=== PATIENT | male | born 1960 | race Caucasian/White ===

== ENCOUNTER 2017-08-01 21:29 | Observation (INO) | payer BC ==
[~2017-08-01] VITALS: Ht 177.8 cm; Wt 91.0 kg
[~2017-08-01 21:29] MED LIST: AMBI5TAB; OXYC-360 PO; PHEN12.5 PO; PRED20 PO
[2017-08-01 21:31] VITALS: BP 214/104; PULSE 105; RESP 18; TEMP 98.9; O2SAT 96
[2017-08-01 21:35] VITALS: BP 188/98; PULSE 96; RESP 18; TEMP 98; O2SAT 98
[2017-08-01 21:40] VITALS: BP 212/109
[2017-08-01] MEDS ORDERED: SODIUM CHLORIDE 0.9% FLUSH 10 ML FLUSH IVF PRN (21:45)
[2017-08-01] MEDS ORDERED: ASPIRIN 81 MG CHEW TAB PO ONE (21:45)
[2017-08-01] MEDS ORDERED: LABETALOL HCL 100 MG/20 ML VIAL IV PUSH ONE (21:45)
--- NOTE | 2017-08-01 21:50 | PD ---
HPI Chief Complaint: Chest Pain Time Seen by Provider: 21:38 Travel History International Travel<30 days: No Contact w/Intl Traveler<30days: No Traveled to known affect area: No History of Present Illness HPI This is a 57-year-old male patient of Dr. Moe who presents for evaluation of chest pain. At 8:30 PM this evening the patient was sitting down eating dinner when he developed left upper chest pain which she describes as a pressure. He reports associated paresthesias in the left proximal arm and shoulder. Symptoms lasted for 30 minutes and then resolved. He is currently asymptomatic. He reports that he has been under a lot of stress in regards to work today. He reports that he had a little bit of dyspnea while he was having the chest pain but none currently. He denies any cough, congestion, nausea or vomiting, diaphoresis, fevers or chills, leg swelling, abdominal pain. He has never experienced pain like this before. He reports a past medical history of hypertension which has been controlled with diet. Denies any history of coronary artery disease, hyperlipidemia, diabetes. Denies tobacco use. No other complaints. PFSH Past Medical History Musculoskeletal: Yes (CHRONIC NECK PAIN) Tetanus Vaccination: Unknown Influenza Vaccination: No Past Surgical History Abdominal Surgery: Yes (HERNIA REPAIR) Social History Alcohol Use: Yes (WEEKLY) Tobacco Use: No Substance Use: No Allergies-Medications (Allergen,Severity, Reaction): Coded Allergies: No Known Allergies (Verified , 04/05/11) Reported Meds & Prescriptions Reported Meds & Active Scripts Active Review of Systems Except as stated in HPI: all other systems reviewed are Neg Physical Exam Narrative GENERAL: Well-developed well-nourished male in no acute distress. He is noted to be hypertensive. SKIN: Warm and dry. HEAD: Atraumatic. Normocephalic. EYES: Pupils equal and round. No scleral icterus. No injection or drainage. ENT: No nasal bleeding or discharge. Mucous membranes pink and moist. NECK: Trachea midline. No JVD. CARDIOVASCULAR: Regular rate and rhythm. No murmur appreciated. RESPIRATORY: No accessory muscle use. Clear to auscultation. Breath sounds equal bilaterally. GASTROINTESTINAL: Abdomen soft, non-tender, nondistended. Hepatic and splenic margins not palpable. MUSCULOSKELETAL: No obvious deformities. No clubbing. No cyanosis. No edema. NEUROLOGICAL: Awake and alert. No obvious cranial nerve deficits. Motor grossly within normal limits. Normal speech. PSYCHIATRIC: Appropriate mood and affect; insight and judgment normal. Data Data Last Documented VS Vital Signs Date Time Temp Pulse Resp B/P (MAP) Pulse Ox O2 Delivery O2 Flow Rate FiO2 08/01/17 21:40 212/109 (143) 08/01/17 21:35 98.0 96 18 98 08/01/17 21:31 Room Air Orders Orders Electrocardiogram (08/01/17 21:44) Basic Metabolic Panel (Bmp) (08/01/17 21:44) Ckmb (Isoenzyme) Profile (08/01/17 21:44) Complete Blood Count With Diff (08/01/17:44) Magnesium (Mg) (08/01/17:44) Prothrombin Time / Inr (Pt) (08/01/17:44) Act Partial Throm Time (Ptt) (08/01/17:44) Troponin I (08/01/17 21:44) Chest, Single Ap (08/01/17:44) Ecg Monitoring (08/01/17:44) Bilateral Bp Monitoring (08/01/17 21:44) Iv Access Insert/Monitor (08/01/17 21:44) Oximetry (08/01/17:44) Oxygen Administration (08/01/17:44) Aspirin Chew (Aspirin Chew) (08/01/17 21:45) Sodium Chloride 0.9% Flush (Ns Flush) (08/01/17 21:45) Labetalol Inj (Trandate Inj) (08/01/17 21:45) Potassium Chloride (Kcl) (08/01/17 22:45) CKMB (08/01/17 21:45) CKMB% (08/01/17 21:45) Admit Order (Ed Use Only) (08/01/17 22:43) Activity Bed Rest With Brp (08/01/17 22:44) Vital Signs (Adult) Q4H (08/01/17 22:44) Cardiac Rhythm .As Directed (08/01/17 22:44) Notify Dr: Other .PRN (08/01/17 22:44) Notify Parameters (08/01/17 22:44) Resp Oxygen Nasal Cannula (10/30/17 ) Ckmb (Isoenzyme) Profile (08/02/17 00:45) Ckmb (Isoenzyme) Profile (08/02/17 03:45) Troponin I (08/02/17 00:45) Troponin I (08/02/17 03:45) Electrocardiogram (08/02/17 00:45) Electrocardiogram (08/02/17 03:45) ^ Obtain (08/01/17 22:44) Sodium Chloride 0.9% Flush (Ns Flush) (08/01/17 22:45) Sodium Chloride 0.9% Flush (Ns Flush) (08/02/17 09:00) Labs Laboratory Tests Test 08/01/17 21:45 White Blood Count 6.1 TH/MM3 Red Blood Count 4.61 MIL/MM3 Hemoglobin 14.6 GM/DL Hematocrit 41.2 % Mean Corpuscular Volume 89.5 FL Mean Corpuscular Hemoglobin 31.6 PG Mean Corpuscular Hemoglobin Concent 35.4 % Red Cell Distribution Width 13.3 % Platelet Count 183 TH/MM3 Mean Platelet Volume 7.9 FL Neutrophils (%) (Auto) 70.0 % Lymphocytes (%) (Auto) 19.3 % Monocytes (%) (Auto) 9.0 % Eosinophils (%) (Auto) 1.3 % Basophils (%) (Auto) 0.4 % Neutrophils # (Auto) 4.3 TH/MM3 Lymphocytes # (Auto) 1.2 TH/MM3 Monocytes # (Auto) 0.5 TH/MM3 Eosinophils # (Auto) 0.1 TH/MM3 Basophils # (Auto) 0.0 TH/MM3 CBC Comment DIFF FINAL Differential Comment Prothrombin Time 11.3 SEC Prothromb Time International Ratio 1.0 RATIO Activated Partial Thromboplast Time 25.1 SEC Blood Urea Nitrogen 13 MG/DL Creatinine 1.25 MG/DL Random Glucose 103 MG/DL Calcium Level 9.0 MG/DL Magnesium Level 1.7 MG/DL Sodium Level 140 MEQ/L Potassium Level 3.3 MEQ/L Chloride Level 103 MEQ/L Carbon Dioxide Level 27.6 MEQ/L Anion Gap 9 MEQ/L Estimat Glomerular Filtration Rate 60 ML/MIN Total Creatine Kinase 214 U/L Creatine Kinase MB 4.0 NG/ML Troponin I LESS THAN 0.02 NG/ML MDM Medical Decision Making Medical Screen Exam Complete: Yes Emergency Medical Condition: Yes Medical Record Reviewed: Yes Interpretation(s) EKG sinus rhythm with a rate of 94 Differential Diagnosis Hypertensive urgency, acute coronary syndrome, anxiety, angina, aortic dissection, costochondritis, pneumothorax, pericarditis, myocarditis Narrative Course The patient was placed on ECG monitoring and pulse oximetry. A 12-lead EKG was obtained. Plan is for lab work, chest x-ray. He will be given IV labetalol, oral aspirin. Initial lab work has been reviewed. His potassium is 3.3. His blood pressure improved to 154 systolic after the administration of labetalol. At this point in time, given his risk factors including age and hypertension, plan will be to admit the patient to the chest pain center for serial cardiac enzymes and rule out purposes. He is agreeable. Procedures EKG Prior to Arrival: Yes Diagnosis Primary Impression: Chest pain Qualified Codes: R07.9 - Chest pain, unspecified Additional Impression: Hypertension Qualified Codes: I10 - Essential (primary) hypertension Admitting Information Admitting Physician Requests: Observation Giovanny Bustillo Aug 01, 2017 21:50
--- NOTE | 2017-08-01 21:57 | RADRPT ---
EXAM DATE/TIME: 08/01/2017 21:46 [facility] COMPARISON: No previous studies available for comparison. INDICATIONS : Chest pain. MEDICAL HISTORY : None. SURGICAL HISTORY : None. ENCOUNTER: Initial ACUITY: 1 day PAIN SCORE: 4/10 LOCATION: Bilateral chest FINDINGS: A single view of the chest demonstrates the lungs to be symmetrically aerated without evidence of mas s, infiltrate or effusion. The cardiomediastinal contours are unremarkable. Osseous structures are intact. CONCLUSION: No acute disease. Juan F Fuentes MD on August 01, 2017 at 21:55 Board Certified Radiologist. This report was verified electronically.
[2017-08-01 22:00] VITALS: BP 148/73; PULSE 87; RESP 16; O2SAT 96
[2017-08-01 22:11] LABS: AUTOMATED NEUTROPHIL # 4.3 TH/MM3 (1.8-7.7); BASOPHIL % 0.4 % (0.0-2.0); EOSINOPHIL # 0.1 TH/MM3 (0-0.4); EOSINOPHIL % 1.3 % (0.0-4.0); HEMATOCRIT 41.2 % (39.0-51.0); HEMOGLOBIN 14.6 GM/DL (13.0-17.0); LYMPH % 19.3 % (9.0-44.0); LYMPHOCYTE # 1.2 TH/MM3 (1.0-4.8); MEAN CELL VOLUME 89.5 FL (80.0-100.0); MEAN CORPUSCULAR HEMOGLOBIN 31.6 PG (27.0-34.0); MEAN CORPUSCULAR HGB CONC 35.4 % (32.0-36.0); MEAN PLATELET VOLUME 7.9 FL (7.0-11.0); MONOCYTE # 0.5 TH/MM3 (0-0.9); PLATELET COUNT 183 TH/MM3 (150-450); RED BLOOD COUNT 4.61 MIL/MM3 (4.50-5.90); RED CELL DISTRIBUTION WIDTH 13.3 % (11.6-17.2); WHITE BLOOD COUNT 6.1 TH/MM3 (4.0-11.0)
[2017-08-01 22:28] LABS: PROTHROMBIN TIME - PATIENT 11.3 SEC (9.8-11.6)
[2017-08-01 22:29] LABS: BICARBONATE 27.6 MEQ/L (21.0-32.0); BLOOD UREA NITROGEN 13 MG/DL (7-18); CHLORIDE 103 MEQ/L (98-107); CREATININE 1.25 MG/DL (0.60-1.30); GLOMERULAR FILTRATION RATE 60 ML/MIN (>89); GLUCOSE,RANDOM 103 MG/DL (74-106); MAGNESIUM 1.7 MG/DL (1.5-2.5); SODIUM (NA) 140 MEQ/L (136-145)
[2017-08-01 22:30] VITALS: BP 152/79; PULSE 83; RESP 16; O2SAT 97
[2017-08-01 22:32] LABS: TROPONIN I LESS THAN 0.02 NG/ML (0.02-0.05)
[2017-08-01] MEDS ORDERED: POTASSIUM CHLORIDE 20 MEQ CONTROLLED RELEASE TAB PO ONE (22:45)
[2017-08-01] MEDS ORDERED: SODIUM CHLORIDE 0.9% FLUSH 10 ML FLUSH IV FLUSH PRN (22:45)
[2017-08-01] MEDS ORDERED: BUPR150CR PO (23:11)
[2017-08-01] MEDS ORDERED: LORA1CHW PO (23:11)
[2017-08-01] MEDS ORDERED: ZANT150T2 PO (23:11)
[2017-08-01] MEDS ORDERED: PRIL2.5P PO (23:11)
[2017-08-01] MEDS ORDERED: PHEN1LIQ33 PO ×2 (23:11)
[2017-08-02 00:57] VITALS: BP 170/79; PULSE 87; RESP 18; TEMP 98.7; O2SAT 97
[2017-08-02 01:50] LABS: TROPONIN I LESS THAN 0.02 NG/ML (0.02-0.05)
[2017-08-02 04:04] VITALS: PULSE 80
[2017-08-02 04:19] VITALS: BP 172/84; PULSE 77; RESP 18; TEMP 98.7; O2SAT 98
[2017-08-02 04:55] LABS: TROPONIN I LESS THAN 0.02 NG/ML (0.02-0.05)
[2017-08-02 08:01] VITALS: BP 156/88; PULSE 69; RESP 22; TEMP 98; O2SAT 96
[2017-08-02] MEDS ORDERED: SODIUM CHLORIDE 0.9% FLUSH 10 ML FLUSH IV FLUSH SCH ×2 (09:00→21:00)
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
[2017-08-02] MEDS ORDERED: ONDANSETRON HCL 4 MG/2 ML VIAL IV PUSH PRN (09:15)
[2017-08-02] MEDS ORDERED: NITROGLYCERIN 0.4 MG SL 25 TABS/BTL SL PRN (09:15)
[2017-08-02] MEDS ORDERED: SODIUM CHLORIDE 0.9% FLUSH 10 ML FLUSH IV FLUSH PRN (09:15)
[2017-08-02] MEDS ORDERED: ACETAMINOPHEN 500 MG CPLT PO PRN (09:15)
[2017-08-02] MEDS ORDERED: FAMOTIDINE 20 MG TAB PO SCH (11:00)
[2017-08-02 12:47] VITALS: BP 170/89; PULSE 75; RESP 24; TEMP 98.2; O2SAT 97
--- NOTE | 2017-08-02 13:11 | RADRPT ---
EXAM DATE/TIME: 08/02/2017 10:33 [facility] COMPARISON: No previous studies available for comparison. INDICATIONS : Left upper chest pain. Angina DOSE: 25.9 mCi Tc99m Myoview at stress 8.7 mCi Tc99m Myoview at rest REST HEART RATE: 94 BPM TARGET HEART RATE: 139 BPM MAX HEART RATE: 143 BPM REST BLOOD PRESSURE: 148/92 mmHg MAX BLOOD PRESSURE: 166/88 mmHg EJECTION FRACTION: 59% MEDICAL HISTORY : Hypertension. SURGICAL HISTORY : Hernia repair. ENCOUNTER: Initial ACUITY: 1 day PAIN SCALE: 5/10 LOCATION: Left upper chest TECHNIQUE: The patient underwent upright treadmill exercise in the chest pain center. Continuous ECG tracing wa s monitored during stress. Gated SPECT imaging was performed after stress, and conventional SPECT im aging was performed at rest. The examination was performed on a SPECT/CT scanner, both attenuation-c orrected and non-corrected datasets were reviewed. FINDINGS: DISTRIBUTION: The maximum perfused segment at stress is in the septal wall. PERFUSION STUDY: The pattern of perfusion at stress is within normal limits with regional variations in perfusion with in 30%. Mild decreased activity along the inferior wall correlates with diaphragmatic attenuation. No evidence of redistribution. The summed stress score is one. GATED STUDY: There is intact wall motion and thickening without hypokinetic or dyskinetic segments. CONCLUSION: 1. No evidence of stress-induced ischemia. 2. Intact wall motion with 59% ejection fraction. RISK CATEGORY: Low (<1% Annual Mortality Rate) Guillermo Bean MD on August 02, 2017 at 13:08 Board Certified Radiologist. This report was verified electronically.
--- NOTE | 2017-08-02 13:44 | HHI.DCPOC ---
Discharge Care Plan Diagnosis: (1) Atypical chest pain (2) Situational stress (3) Hypertension Goals to Promote Your Health * To prevent worsening of your condition and complications * To maintain your health at the optimal level Directions to Meet Your Goals Take your medications as prescribed Follow your dietary instruction Follow activity as directed Keep your appointments as scheduled Take your immunizations and boosters as scheduled If your symptoms worsen call your PCP, if no PCP go to Urgent Care Center or Emergency Room Smoking is Dangerous to Your Health. Avoid second hand smoke Call the 24-hour hour crisis hotline for domestic abuse at Leni Ding Aug 02, 2017 13:44
--- NOTE | 2017-08-02 13:44 | HHI.DCPOC ---
Discharge Care Plan Diagnosis: (1) Atypical chest pain (2) Situational stress (3) Hypertension Goals to Promote Your Health * To prevent worsening of your condition and complications * To maintain your health at the optimal level Directions to Meet Your Goals Take your medications as prescribed Follow your dietary instruction Follow activity as directed Keep your appointments as scheduled Take your immunizations and boosters as scheduled If your symptoms worsen call your PCP, if no PCP go to Urgent Care Center or Emergency Room Smoking is Dangerous to Your Health. Avoid second hand smoke Call the 24-hour hour crisis hotline for domestic abuse at Leni Ding Aug 02, 2017 13:44
--- NOTE | 2017-08-02 13:44 | HHI.DCPOC ---
Discharge Care Plan Diagnosis: (1) Atypical chest pain (2) Situational stress (3) Hypertension Goals to Promote Your Health * To prevent worsening of your condition and complications * To maintain your health at the optimal level Directions to Meet Your Goals Take your medications as prescribed Follow your dietary instruction Follow activity as directed Keep your appointments as scheduled Take your immunizations and boosters as scheduled If your symptoms worsen call your PCP, if no PCP go to Urgent Care Center or Emergency Room Smoking is Dangerous to Your Health. Avoid second hand smoke Call the 24-hour hour crisis hotline for domestic abuse at Leni Ding Aug 02, 2017 13:44
[2017-08-02] MEDS ORDERED: LISI10TA3 PO (14:00)
[2017-08-02 14:12] VITALS: BP 150/70
--- NOTE | 2017-08-02 14:32 | TR ---
Date Performed: 08/02/2017 Time Performed: 11:31:55 DOCTOR: Julisa Borrero DRUG LIST: CLINICAL HISTORY: CHEST PAIN/HYPERTENSION REASON FOR TEST: REASON FOR ENDING: OBSERVATION: CONCLUSION: Itz protocol completed. Stopped sec to exceeding target heart rate and leg fatigue . Maximum NQ=429 Target HR Achieved=88.0% Maximum DA=452/90 Total Exercise Time=8:31. No reprod chest pain/discomfort. No st t segment changes. Hypertensive response. Good exercise tolerance. Recovery q uick and unremarkable. Nuclear images pending. COMMENTS:
--- NOTE | 2017-08-02 14:32 | TR ---
Date Performed: 08/02/2017 Time Performed: 11:31:55 DOCTOR: Julisa Borrero DRUG LIST: CLINICAL HISTORY: CHEST PAIN/HYPERTENSION REASON FOR TEST: REASON FOR ENDING: OBSERVATION: CONCLUSION: Itz protocol completed. Stopped sec to exceeding target heart rate and leg fatigue . Maximum KG=039 Target HR Achieved=88.0% Maximum UU=559/90 Total Exercise Time=8:31. No reprod chest pain/discomfort. No st t segment changes. Hypertensive response. Good exercise tolerance. Recovery q uick and unremarkable. Nuclear images pending. COMMENTS:
--- NOTE | 2017-08-02 14:32 | TR ---
Date Performed: 08/02/2017 Time Performed: 11:31:55 DOCTOR: Julisa Borrero DRUG LIST: CLINICAL HISTORY: CHEST PAIN/HYPERTENSION REASON FOR TEST: REASON FOR ENDING: OBSERVATION: CONCLUSION: Itz protocol completed. Stopped sec to exceeding target heart rate and leg fatigue . Maximum ZQ=316 Target HR Achieved=88.0% Maximum MA=014/90 Total Exercise Time=8:31. No reprod chest pain/discomfort. No st t segment changes. Hypertensive response. Good exercise tolerance. Recovery q uick and unremarkable. Nuclear images pending. COMMENTS:
--- NOTE | 2017-08-02 14:35 | EKG ---
Date Performed: 08/02/2017 Time Performed: 04:16:25 PTAGE: 57 years EKG: Sinus rhythm INCOMPLETE RIGHT BUNDLE BRANCH BLOCK SEPTAL MYOCARDIAL INFARCTION PROBABLE INFERIOR MYOCARDIAL INFAR CTION ABNORMAL ECG Since PREVIOUS TRACING , no significant change noted PREVIOUS TRACIN08/02/2017 01.05 DOCTOR: Julisa Borrero Interpretating Date/Time 08/02/2017 14:33:13
--- NOTE | 2017-08-02 14:36 | EKG ---
Date Performed: 08/01/2017 Time Performed: 21:36:38 PTAGE: 57 years EKG: Sinus rhythm Nonspecific ST changes No prior ECG DOCTOR: Julisa Borrero Interpretating Date/Time 08/02/2017 14:35:12
--- NOTE | 2017-08-02 14:36 | EKG ---
Date Performed: 08/01/2017 Time Performed: 21:36:38 PTAGE: 57 years EKG: Sinus rhythm Nonspecific ST changes No prior ECG DOCTOR: Julisa Borrero Interpretating Date/Time 08/02/2017 14:35:12
--- NOTE | 2017-08-02 14:36 | EKG ---
Date Performed: 08/01/2017 Time Performed: 21:36:38 PTAGE: 57 years EKG: Sinus rhythm Nonspecific ST changes No prior ECG DOCTOR: Julisa Borrero Interpretating Date/Time 08/02/2017 14:35:12
--- NOTE | 2017-08-02 14:36 | EKG ---
Date Performed: 08/02/2017 Time Performed: 01:05:38 PTAGE: 57 years EKG: Sinus rhythm PROBABLE INFERIOR MYOCARDIAL INFARCTION ABNORMAL ECG Since PREVIOUS TRACING , no significant change noted PREVIOUS TRACIN08/01/2017 21.36 DOCTOR: Julisa Borrero Interpretating Date/Time 08/02/2017 14:33:59
[2017-08-02] MEDS ORDERED: buPROPion HCL 150 MG SUSTAINED RELEASE TAB PO SCH (21:00)
[2017-08-03] MEDS ORDERED: ASPIRIN 325 MG TAB PO SCH (09:00)
== END 2017-08-02 14:24 | disposition home or self-care (01) ==
LOC: NEPC 21:29 → NEDA 22:44 → NEPGCP 23:28
PROVIDERS: ADMIT Internal Medicine Cardiovascular Disease; ATTEND Internal Medicine Cardiovascular Disease
DX: R07.89 Other chest pain (principal); I10 Essential (primary) hypertension; F43.8 Other reactions to severe stress; R94.31 Abnormal electrocardiogram [ECG] [EKG]
CPT/HCPCS: 71010; 78452; 80048; 82550; 82552; 83735; 84484; 85025; 85610; 85730; 93005; 93017; 99285; A9502; G0378